=== PATIENT | male | born 2000 | race Two or more races ===

== ENCOUNTER 2018-05-26 11:44 | Inpatient (IN) | payer OTHER ==
[2018-05-26 13:41] VITALS: BP 133/88
[2018-05-26] MEDS ORDERED: ACETAMINOPHEN 325 MG TABLET. PO PRN (13:45)
[2018-05-26] MEDS ORDERED: ONDANSETRON PF 4 MG/2 ML VIAL. IV PRN (13:45)
--- NOTE | 2018-05-26 14:17 | PDOC2 ---
NEUROLOGY CONSULT Date of Admission Date of Admission DATE: 05/26/18 TIME: 14:13 Reason for Consult Reason for Consult: Seizure Referring Physician Referring Physician: Dr. Amos Source Source: Caregiver (mother), Chart review, Patient History of Present Illness History of Present Illness The patient is a 18-year-old right-handed male who was working out at [facility] [employer] where he goes to school and plays baseball. He became unresponsive. He remembers waking up with paramedics trying to hold him down. He had convulsive activity, eyes rolling up in his head, but no incontinence or tongue biting. Mother says he had an episode of syncope about 5 years ago while at a sports Camp and had negative MRI and CT at that time. The patient has had anger outbursts at his coaches, which is new for him. He is also taking a supplement for weight lifting. He denies any prior history of head injury or stroke. He was given Versed and 1 g of Keppra intravenously. He did see Dr. 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 Full 14-point review of systems is negative. Physical Exam Physical Examination General: Well-developed, well-nourished male in no acute distress HEENT: Normocephalic and�atraumatic.�Temporal arteries�pulsatile and nontender. Neck: Supple without bruit, no meningismus� Musculoskeletal: Stability:�see neurologic. Gait exam:�see neurologic. Tone:�see neurologic.� Strength:�see neurologic.� Neurological: Mental Status:�intact, orientation, memory, attention span/concentration, language, fund of knowledge normal. Cranial Nerves:�Pupils equal and reactive to light, extraocular movements are�intact, visual epperson are full to confrontation. Facial sensation is normal. There is no facial asymmetry. Vestibulo-ocular reflex is intact. Palate elevates and tongue protrudes in midline. All other cranial related problems are negative except as mentioned before.�Reflexes:�2+ and symmetric with flexor plantar responses. Motor:�5/5 strength with normal tone and bulk. Coordination:�Finger-nose finger and heel-to -moreno testing are normal. Rapid alternating movements and fine finger movements are intact. Gait:�Normal, including tandem. Sensory:�Normal pinprick, vibration , light touch, proprioception.� Vitals VITALS Vital Signs Date Time Temp Pulse Resp B/P (MAP) Pulse Ox O2 Delivery O2 Flow Rate FiO2 05/26/18 13:41 97.1 68 20 133/88 (103) 97 Room Air 97.1 Labs Labs I reviewed records from [place] and note that patient did have bilirubin of 1.1 , slightly elevated transaminase levels, negative urine drug screen Images Images CT scan of the head without contrast 05/25/2018 The ventricles and sulci are within normal limits in size and configuration. No focal area of abnormal attenuation is seen involving the brain parenchyma. No extra-axial fluid collection is seen. No skull fracture is seen. Impression: Negative study. Assessment/Plan Assessment/Plan Impression: Seizures, but these are atypical with the lack of tongue biting or incontinence. Consider side effects of his weight lifting supplement, psychogenic nonepileptic seizures. He does have a history of exertional syncope with a negative workup 4 years ago. Recommendations: Brain MRI Electroencephalogram Holding off on continuing anticonvulsants until the studies are done. Fully discussed with the patient and his mother. Thank you for letting me help with the patient's care. MANDO SAAVEDRA MD May 26, 2018 14:17
--- NOTE | 2018-05-26 15:10 | EEG ---
DATE OF SERVICE: 05/26/2018 EEG NUMBER: [id number]. OBJECTIVE: The patient is a 18-year-old male with new onset seizure. DESCRIPTION: This is a digital study. Electrodes are placed according to the international 10-20 system. Bipolar and referential montages are available. Activation procedures typically include hyperventilation and intermittent photic stimulation. INTERPRETATION: The waking background consists of 9-10 Hz, 50-100 microvolt activity, symmetrically distributed over parietooccipital regions and reactive to eye opening. Hyperventilation and intermittent photic stimulation are noncontributory. Sleep is not achieved. IMPRESSION: This electroencephalogram with the patient awake only is within normal limits. There is no focal, paroxysmal, or epileptiform activity. Thank you for letting us help with the patient's care. MANDO SAAVEDRA MD DR: RENETTA/madison JOB#: [id number] / [id number] KRISTYN Cowart MD
[2018-05-26 15:59] VITALS: BP 140/94
[2018-05-26] MEDS ORDERED: GADOBUTROL 10 MMOL/10 ML VIAL IV ONE (16:45)
--- NOTE | 2018-05-26 17:31 | RAD ---
MRI of the Brain without and with Contrast 05/26/2018 Clinical History: Dizziness. Seizures. Technique: Unenhanced T1-weighted sagittal and axial, FLAIR axial and coronal and T2-weighted and diffusion-weighted axial images of the brain were obtained. Thin section T2-weighted coronal images through the temporal lobes were obtained. After the intravenous administration of 10 cc of Gadavist, enhanced T1-weighted axial and coronal images of the brain were obtained. Findings: Comparison is made to a CT scan of the head dated 05/25/2018. The ventricles and sulci are within normal limits in size and configuration. No area of significant abnormal signal intensity is seen involving the brain parenchyma. No abnormal area of contrast enhancement is seen. No extra-axial fluid collection is noted. There is no MRI evidence of acute ischemia/infarction. Images through the temporal lobes are within normal limits. Mild mucosal thickening is seen scattered throughout the paranasal sinuses. A 1.3 cm mucous retention cyst is seen involving the left maxillary sinus. There are minimal bilateral mastoid effusions. Normal flow voids are seen within the major vascular structures surrounding the brain parenchyma. Impression: 1. Negative MRI of the brain. 2. Mild paranasal sinus and mastoid disease. Electronically signed by: Chang Rees MD (05/26/2018 5:27 PM) [id number]
[2018-05-26 19:12] VITALS: BP 126/87
[2018-05-26] MEDS ORDERED: levETIRAcetam 500 MG in IV DEXTROSE 5% 100ML 100 ML IV SCH (21:00)
[2018-05-26 23:13] VITALS: BP 104/62
[2018-05-27 03:16] VITALS: BP 133/79
[2018-05-27 06:50] VITALS: BP 136/77
--- NOTE | 2018-05-27 10:32 | PDOC ---
PROGRESS NOTES Assessment Seizures, but these are atypical with the lack of tongue biting or incontinence. Consider side effects of his weight lifting supplement, psychogenic nonepileptic seizures. He does have a history of exertional syncope with a negative workup 4 years ago. MRI findings regarding sinuses and mastoids are not clinically relevant Plan Brain MRI and electroencephalogram are normal I discussed risk, benefits, alternatives, and side effects with the patient and his mother in detail. Given the fact that most likely these were provoked seizures in the negative workup, I am leaning towards not starting anticonvulsants. Patient understands that he could from a seizure and that having a seizure 5 months in 30 days from now would delay his driving privileges. He and his mother are agreeable to delaying starting anticonvulsants. I get informed him that he cannot drive until he has gone 6 months without a seizure. He prefers to follow up with Dr. Elizalde in [place]. Okay for discharged today. Okay for him to return to classes, only restriction is that he cannot drive a car and he should not use his weightlifting supplement anymore. Subjective No complaints, no further seizures Objective Vital Signs Date Time Temp Pulse Resp B/P (MAP) Pulse Ox O2 Delivery O2 Flow Rate FiO2 05/27/18 08:00 Room Air 05/27/18 06:50 97.6 69 17 136/77 (96) 98 97.6 Intake and Output 05/27/18 07:01 Intake Total 200 ml Balance 200 ml Intake Oral 200 ml # Voids 3 PHYSICAL EXAM Alert. Oriented to time, place and person. PERRL. EOMI. CN: no focal findings. Muscle tone: normal. Muscle strength: 5/5 DTR: 2+ Plantar reflex: flexor Gait: normal, including tandem. Sensory exam: no abnormal findings. No cerebellar signs elicited. Review of Relevant I have reviewed the following items chad (where applicable) has been applied. Medications Current Medications Levetiracetam 500 mg/Dextrose 105 ml @ 420 mls/hr Q12HR IV ; Start 05/26/18 at 21:00; Stop 05/26/18 at 21:00; Status DC Ondansetron HCl (Zofran) 4 mg PRN Q4HRS PRN IV NAUSEA/VOMITING; Start 05/26/18 at 13:45 Acetaminophen (Tylenol) 650 mg PRN Q6HRS PRN PO Pain; Start 05/26/18 at 13:45 Gadobutrol (Gadavist) 10 mmol 1X ONCE IV Last administered on 05/26/18at 17:06; Start 05/26/18 at 16:45; Stop 05/26/18 at 16:46; Status DC Vitals/I & O Vital Sign - Last 24 Hours 05/26/18 05/26/18 05/26/18 05/26/18 13:41 15:59 19:12 20:00 Temp 97.1 97.5 97.1 97.1 97.5 97.1 Pulse 68 75 72 Resp 20 20 20 B/P (MAP) 133/88 (103) 140/94 (109) 126/87 (100) Pulse Ox 97 99 98 O2 Delivery Room Air Room Air Room Air Room Air 05/26/18 05/27/18 05/27/18 05/27/18 23:13 03:16 06:50 08:00 Temp 98.4 98.0 97.6 98.4 98.0 97.6 Pulse 62 59 69 Resp 20 20 17 B/P (MAP) 104/62 (76) 133/79 (97) 136/77 (96) Pulse Ox 98 98 98 O2 Delivery Room Air Room Air Room Air Room Air Intake and Output 05/26/18 05/26/18 05/27/18 15:01 23:01 07:01 Intake Total 200 ml Balance 200 ml Images MRI of the Brain without and with Contrast 05/26/2018 The ventricles and sulci are within normal limits in size and configuration. No area of significant abnormal signal intensity is seen involving the brain parenchyma. No abnormal area of contrast enhancement is seen. No extra-axial fluid collection is noted. There is no MRI evidence of acute ischemia/infarction. Images through the temporal lobes are within normal limits. Mild mucosal thickening is seen scattered throughout the paranasal sinuses. A 1.3 cm mucous retention cyst is seen involving the left maxillary sinus. There are minimal bilateral mastoid effusions. Normal flow voids are seen within the major vascular structures surrounding the brain parenchyma. Impression: 1. Negative MRI of the brain. 2. Mild paranasal sinus and mastoid disease. MANDO SAAVEDRA MD May 27, 2018 10:32
[2018-05-27 10:45] VITALS: BP 138/86
--- NOTE | 2018-05-27 11:59 | SSS ---
ADMIT DATE: 05/26/2018 HISTORY OF PRESENT ILLNESS: The patient is a 18-year-old male patient who was originally seen at [facility] with multiple seizure-like activities. There were atypical. He has a CT scan done there showed that was negative and the patient was transferred to [facility] for an MRI and EEG. His MRI of the brain showed the ventricles and sulci are within normal limits in size and configuration. No areas of significant abnormal signal intensity seen involving the brain parenchyma, no abnormal areas of contrast enhancement is seen, no extraaxial fluid collection is noted. There is no MRI evidence of acute ischemia or infarction. Images through the temporal lobes are within normal limits. The patient has mild mucosal thickening is seen scattered throughout the paranasal sinuses. A 1.3 cm mucous retention cyst is seen involving the left maxillary sinus. There is minimal bilateral mastoid effusion. Basically the MRI is negative for any abnormality. He has had an EEG, which basically the neurologist reports that this electroencephalogram with the patient awake only is within normal limits. There is no focal, paroxysmal or epileptiform activity. As he remained stable, he has no further episodes of seizures here documented; a decision was made to discharge him back to the [facility] where he lives with a plan to follow up with either Dr. Elizalde or Dr. Gunter. PHYSICAL EXAMINATION: GENERAL: When I saw him today, he was sitting comfortably, in no apparent respiratory distress. No pallor, jaundice, cyanosis, or thyromegaly. No jugular venous distension. No limb edema. VITAL SIGNS: His heart rate was 93, blood pressure was 138/86, temperature was 97.5, respiratory rate was 16, and oxygen saturation was 95%. HEAD, EYES, EARS, NOSE AND THROAT: Normocephalic, atraumatic. NECK: Supple. HEART: Showed normal first and second heart sounds. No gallop, rub or murmur. CHEST: Clear to auscultation. No crepitation or rhonchi. ABDOMEN: Distended, soft, nontender. No guarding or rigidity. No organomegaly. All hernial orifices intact. Bowel sounds normal. NEUROLOGIC: He was awake, alert, responding appropriately. All cranial nerves intact. He moves extremities without difficulty. He ambulates without assistance or assistive devices. FINAL DISCHARGE DIAGNOSIS: Nonepileptic seizures. Apparently, Dr. Gunter decided that the patient will not be treated with antiepileptic ____ and he was instructed that he does not need to go on an anticonvulsant and that he is not to drive for 6 months. He will follow with Dr. Elizalde in [place] and from the Neurology point of view, he can be discharged back to return to his classes. The only restriction is he cannot drive a car. He should not use his weight lifting supplement anymore. KRISTYN WHITMORE MD DR: KELLY/madison JOB#: [id number] / [id number]
[2018-05-27 12:27] LABS: CALCIUM 9.6 mg/dL (8.5-10.1); GFR 95.3; POTASSIUM 3.7 mmol/L (3.5-5.1)
--- NOTE | 2018-05-27 13:00 | NUR ---
Patient discharged to home. Discharge instructions, medications, and follow up appointments discussed with patient and mother. Both verbalized understanding. Discharge papers given to patient. IV discontinued. Patient ambulated out with staff and mother at this time.
== END 2018-05-27 13:00 | disposition home or self-care (01) | DRG 880 ==
LOC: 6 SOUTH 13:19
PROVIDERS: ADMIT Internal Medicine; ATTEND Internal Medicine
DX: F44.5 Conversion disorder with seizures or convulsions (principal); Z79.899 Other long term (current) drug therapy
CPT/HCPCS: 36415; 70553; 80048; 95816; A9585; G0378